=== PATIENT | female | born 2000 | race Two or more races ===

== ENCOUNTER 2020-03-29 20:43 | Outpatient (REF) | payer MEDICAID, SELFPAY | END 2020-03-29 21:03 | LOC: LBN 20:43 | PROVIDERS: Visit Provider Naturopath | DX: N76.0 Acute vaginitis (principal) | CPT/HCPCS: 87480; 87510; 87660 ==

== ENCOUNTER 2020-04-06 02:50 | Outpatient (CLI) | payer MEDICAID, SELFPAY ==
[2020-04-06 17:02] LABS: Abs Immature Grans 0.02 10^3/uL (0.0-0.06); Absolute Basophil Count 0.02 10^3/uL (0.0-0.2); Absolute Eosinophil Count 0.08 10^3/uL (0.0-0.7); Absolute Lymphocyte Count 2.14 10^3/uL (1.2-3.4); Absolute Monocyte Count 0.47 10^3/uL (0.1-0.8); Absolute Neutrophil Count 4.04 10^3/uL (1.2-6.7); Basophils % 0.3; Eosinophils % 1.2; HCT 37.5 % (36.0-46.0); HGB 12.7 g/dL (11.2-15.7); Immature Grans % 0.3; Lymphocytes % 31.6; MCH 28.7 pg (27.0-33.0); MCHC 33.9 % (32.0-36.0); MCV 84.7 fL (80-95); Monocytes % 6.9; Neutrophils % 59.7; Nucleated RBC 0 %; Platelet Count 290 10^3/uL (130-400); RBC 4.43 10^6/uL (3.93-5.22); RDW 12.8 % (11.7-14.6); RDW-SD 38.9 fL; WBC 6.77 10^3/uL (4.4-10.8)
[2020-04-06 17:46] LABS: Iron 62 ug/dL (50-170)
[2020-04-06 18:01] LABS: ALT 23 U/L (14-59); AST 17 U/L (15-37); Albumin 4.3 g/dL (3.4-5.0); Alkaline Phosphatase 60 U/L (46-116); Anion Gap 8.5 mmol/L (3-11); BUN 13 mg/dL (7-18); Bilirubin, Total 0.4 mg/dL (0.2-1.0); CO2 26.5 mmol/L (21.0-32.0); CREATININE 0.69 mg/dL (0.55-1.02); Calcium 9.1 mg/dL (8.5-10.1); Chloride 103 mmol/L (98-107); Ferritin 41 ng/mL (8-252); Glucose 83 mg/dL (74-106); Potassium 4.3 mmol/L (3.5-5.1); Sodium 138 mmol/L (136-145); TSH 1.19 uIU/mL (0.52-4.13); Total Protein 7.6 g/dL (6.4-8.2)
[2020-04-06 18:10] LABS: HCG Quant, Pregnancy < 1 mIU/mL (1-3)
[2020-04-06 18:28] LABS: FREE T4 0.94 ng/dL (0.78-1.34)
[2020-04-07 17:03] LABS: T3,Free 2.8 pg/mL (2.8-5.3)
[2020-04-08 13:52] LABS: Chlamydia Result Negative (Negative); GC Result Negative (Negative)
== END 2020-04-06 03:10 ==
PROVIDERS: PCP Naturopath; Visit Provider Naturopath
DX: R53.83 Other fatigue (principal); E07.9 Disorder of thyroid, unspecified; N94.4 Primary dysmenorrhea; K59.00 Constipation, unspecified; D50.9 Iron deficiency anemia, unspecified; R42 Dizziness and giddiness; N94.19 Other specified dyspareunia; N76.0 Acute vaginitis
CPT/HCPCS: 36415; 80053; 87491; 87591; 82728; 83540; 84439; 84443; 84481; 84702; 85025

== ENCOUNTER 2022-10-05 22:30 | Outpatient (REF) | payer MEDICAID, SELFPAY ==
--- NOTE | 2022-10-05 10:45 | PAPFT_PTH ---
PATIENT: Wing Andersen LOC: [facility] U#:[id number] AGE/SX: 21/F ROOM: RE10/05/[address]: Jonas Arevalo : 2000 BED: DIS: 10/05/2022 SPEC #: [id number] RECD: 10/08/22 12:58 STATUS: COLE RELeonard #: [id number] TOBI: 10/05/22 10:[address]: Jonas Aervalo DEPT: [facility] Cytology RECD BY: Nhung Casillas Tissues: 1 - CX/ENDOCX FOR PAP SMEARS Procedures: PAP THIN PREP/UVM Screening Comments: [id number] (CHLAMYDIA/GC)
[2022-10-09 15:07] LABS: Chlamydia Result Negative (Negative); GC Result Negative (Negative)
== END 2022-10-05 22:31 | disposition home or self-care (01) ==
LOC: LBN 22:30
PROVIDERS: PCP Naturopath; Visit Provider Naturopath
DX: N76.0 Acute vaginitis (principal); Z11.3 Encounter for screening for infections with a predominantly sexual mode of transmission; Z12.4 Encounter for screening for malignant neoplasm of cervix
CPT/HCPCS: 87491; 87591; 88142; 87480; 87510; 87660

== ENCOUNTER 2022-11-23 01:57 | Outpatient (CLI) | payer MEDICAID, SELFPAY ==
[2022-11-23 18:18] LABS: TSH (W/Ref FT4) 1.02 uIU/mL (0.36-3.74)
[2022-11-26 10:16] LABS: FSH 4.7 mIU/mL (See Note)
[2022-11-29 15:23] LABS: Testosterone, Free 0.33 ng/dL (<0.13-1.08); Testosterone, Total 23 ng/dL (8-60)
== END 2022-11-23 01:58 | disposition home or self-care (01) ==
LOC: LBO 01:57
PROVIDERS: PCP Naturopath; Visit Provider Nurse Practitioner Women's Health
DX: N92.5 Other specified irregular menstruation (principal)
CPT/HCPCS: 36415; 84402; 84403; 83001; 84443

== ENCOUNTER 2023-01-27 10:38 | Emergency (ER) | payer MEDICAID, SELFPAY ==
[2023-01-27 11:19] VITALS: BP 115/56; PULSE 98; RESP 18; TEMP 37.3; O2SAT 100
[2023-01-27 11:34] VITALS: RESP 16
--- NOTE | 2023-01-27 11:36 | ED.GENADUL_ITS ---
Discharge Plan Disposition Patient Disposition: Home Condition: Good Discharge Details Clinical Impression: Vomiting affecting , Primary Care Provider: Jonas Arevalo ED Provider: Annalisa Cruz Home Meds and New Rx's Prescriptions: New ondansetron HCl 4 mg tablet 4 mg PO Q8H PRN (Reason: nausea and vomiting) Qty: 30 0RF Continued melatonin [Kids Melatonin] 1 mg tablet,chewable 2 mg PO Unisom (doxylamine) 25 mg tablet 25 mg PO QHS PRN Classic 28 mg iron- 800 mcg tablet 1 tab PO DAILY Patient Comments: [facility] cholecalciferol (vitamin D3) 50 mcg (2,000 unit) capsule 50 mcg PO DAILY pyridoxine (vitamin B6) 100 mg tablet 100 mg PO DAILY Discharge Instructions Instructions: Nausea and Vomiting in (ED) Additional Instructions: Call your obstetric provider today to schedule an appointment to followup on your visit here. Return to the emergency department if you are unable to keep down fluids or feel like you are going to pass out. Stand Alone Forms: Work Release Referrals: Jonas Arevalo [Primary Care Provider] - Medical Decision Making 22yo F presenting 10 weeks gestation by LMP and early ultrasound with nausea, vomiting, and inability to tolerate PO. Reports confirmed IUP. Vitals signs and physical exam reassuring, no abdominal tenderness, appears well hydrated. Low suspicion for primary cardiac etiology, not concerned for ectopic or acute surgical intrabdominal process. Given 1L IVFB and IV zofran. EKG sinus rhythm, no prolonged QT, no concerning ST segment or T wave abnormalities to suggest occlusive NE. Labs ordered and reviewed, CBC & CMP reassuring with no actionable abnormalities. On reassessment she is tolerating PO fluids and crackers, no further vomiting. Ambulates steadily without lightheadedness. Discharged home with prescription for zofran and advised to followup with her OB provider; discharge instructions including return precautions were reviewed with patient who verbalized understanding. All questions were answered and they are in full agreement with the plan. Lab Data Labs: Laboratory Tests Range/Units 01/27/23 01/27/23 11:45 11:45 WBC (4.4-10.8) 10^3/uL 7.97 RBC (3.93-5.22) 10^6/uL 4.43 Hgb (11.2-15.7) g/dL 12.6 Hct (36.0-46.0) % 36.3 MCV (80-95) fL 82 MCH (27.0-33.0) pg 28.4 MCHC (32.0-36.0) % 34.7 RDW (11.7-14.6) % 12.3 Plt Count (130-400) 10^3/uL 245 MPV (8.0-11.0) fL 11.3 H Sodium (136-145) mmol/L 135 L Potassium (3.5-5.1) mmol/L 3.6 Chloride (98-107) mmol/L 102 Carbon Dioxide (21.0-32.0) mmol/L 24.2 Anion Gap (3-11) mmol/L 8.8 BUN (7-18) mg/dL 5 L Creatinine (0.55-1.02) mg/dL 0.7 Est GFR (CKD-EPI 2020) (mL/min/1.73m2) 125.33 Glucose (74-106) mg/dL 90 Calcium (8.5-10.1) mg/dL 9.0 Total Bilirubin (0.2-1.0) mg/dL 0.7 AST (15-37) U/L 13 L ALT (14-59) U/L 14 Alkaline Phosphatase (46-116) U/L 51 Total Protein (6.4-8.2) g/dL 7.7 Albumin (3.4-5.0) g/dL 3.8 HPI General Mode of arrival: ambulatory . Date/Time Provider Initiated Documentation: 01/27/23 11:36 . Limitations to Documentation: no limitations . Information obtained by: patient . HPI Narrative: 22yo F presenting 10 weeks gestation by LMP and early ultrasound with nausea, vomiting, and inability to tolerate PO. Reports confirmed IUP. No abdominal pain, dysuria, hematuria, vaginal bleeding, or vaginal discharge. Has not been able to keep anything down for the past week; has tried unisom without improvement. Over the past two days has felt very lightheaded, especially when she stands up. Otherwise in her usual state of health with no fevers, palpitations, chest pain, shortness of breath, syncope, or other concerns. Related Data Home Medications Medication Instructions Recorded Confirmed melatonin 1 mg chewable tablet 2 mg PO 12/17/22 12/31/22 (Kids Melatonin) cholecalciferol (vitamin D3) 50 50 mcg PO DAILY 12/31/22 12/31/22 mcg (2,000 unit) capsule doxylamine succinate 25 mg tablet 25 mg PO QHS PRN 12/31/22 12/31/22 (Unisom (doxylamine)) vits no.126-ferrous fum 1 tab PO DAILY 12/31/22 12/31/22 28 mg iron-folic acid 800 mcg tablet (Classic ) pyridoxine (vitamin B6) 100 mg 100 mg PO DAILY 12/31/22 12/31/22 tablet ondansetron HCl 4 mg tablet 4 mg PO Q8H PRN nausea and 01/27/23 vomiting #30 tabs Previous Rx's Medication Instructions Recorded ondansetron HCl 4 mg tablet 4 mg PO Q8H PRN nausea and 01/27/23 vomiting #30 tabs Allergies Allergy/AdvReac Type Severity Reaction Status Date / Time No Known Drug Allergies Allergy Verified 12/31/22 15:23 General Stated Complaint: Dizzy/Sync ANEL: 3 Review of Systems Narrative: see HPI PFSH All Active Problems (Updated 01/27/23 @ 13:37 by Annalisa Cruz MD) Vomiting affecting (Acute) (Acute) Medical History (Updated 01/27/23 @ 13:37 by Annalisa Cruz MD) No pertinent past medical history Surgical History (Updated 11/21/22 @ 13:26 by Nissa Villar NP) No pertinent past surgical history Social History (Updated 11/21/22 @ 13:27 by Nissa Villar NP) Smoking/Tobacco Use Status: Never Smoking risk assessment performed?: Yes Alcohol Intake: current Alcohol Intake frequency: holidays/special occasions only Drug use: Never Household members: spouse Housing: house Sexually active: Yes Do you think of yourself as: straight/heterosexual Current gender identity: female Do you feel safe at home: Yes Do you feel safe in your relationship?: Yes Female Reproductive History Menstrual control method: none History History 1 Para 0 Hx # Term Pregnancies 0 Multiple births 0 Hx # Pregnancies 0 Ectopic pregnancies 0 AB induced 0 Hx Number of Living Children 0 AB spontaneous 0 Exam Narrative Exam Narrative: General: Alert, well appearing, well nourished, in no acute distress. Head: Normocephalic, atraumatic Neck: Trachea midline, Neck supple. ENT: MMM. No oropharygeal lesions or exudate. Cardiac: RRR, no murmurs appreciated Resp: No respiratory distress. CTAB. Abd: Soft, non-distended, nontender : No suprapubic tenderness. No CVA tenderness. Extremities: No deformities. No peripheral edema. Neurologic: GCS 15. Moves all extremities freely against gravity Course Vital Signs Vital signs: Vital Signs Temperature 37.3 C 01/27/23 11:19 Pulse 98 H 01/27/23 11:19 Respiratory Rate 18 01/27/23 11:19 Blood Pressure 115/56 L 01/27/23 11:19 Pulse Oximetry 100 01/27/23 11:19 Temperature 37.3 C 01/27/23 11:19 Pulse 98 H 01/27/23 11:19 Respiratory Rate 18 01/27/23 11:19 Blood Pressure 115/56 L 01/27/23 11:19 Blood Pressure Position Standing 01/27/23 11:19 Pulse Oximetry 100 01/27/23 11:19 Oxygen Delivery Method Room Air 01/27/23 11:19 Oxygen Flow Rate 0 01/27/23 11:19 Pain Level 0 01/27/23 11:19
[2023-01-27] MEDS: Ondansetron 4 MG/2 ML VIAL IVP (11:48)
[2023-01-27 11:52] LABS: HCT 36.3 % (36.0-46.0); HGB 12.6 g/dL (11.2-15.7); MCH 28.4 pg (27.0-33.0); MCHC 34.7 % (32.0-36.0); MCV 82 fL (80-95); MPV 11.3 fL (8.0-11.0); Platelet Count 245 10^3/uL (130-400); RBC 4.43 10^6/uL (3.93-5.22); RDW 12.3 % (11.7-14.6); RDW-SD 36.8 fL; WBC 7.97 10^3/uL (4.4-10.8)
[2023-01-27 12:07] LABS: ALT 14 U/L (14-59); AST 13 U/L (15-37); Albumin 3.8 g/dL (3.4-5.0); Alkaline Phosphatase 51 U/L (46-116); Anion Gap 8.8 mmol/L (3-11); BUN 5 mg/dL (7-18); Bilirubin, Total 0.7 mg/dL (0.2-1.0); CO2 24.2 mmol/L (21.0-32.0); CREATININE 0.7 mg/dL (0.55-1.02); Chloride 102 mmol/L (98-107); Estimated GFR 125.33 (mL/min/1.73m2); Glucose 90 mg/dL (74-106); Potassium 3.6 mmol/L (3.5-5.1); Sodium 135 mmol/L (136-145); Total Protein 7.7 g/dL (6.4-8.2)
--- NOTE | 2023-01-27 12:45 | RT.EKG_ITS ---
APPROVED REPORT Exam: Resting ECG Reason for Exam: lightheaded Patient Location: E HR:65 bpm ECG Measurements Heart Rate 65 AXIS AR 179 P 65 QRSd 95 QRS 77 QT 378 T 42 QTc 393 Conclusion sinus rhythm with sinus arythmia normal axis appropriate interavls no ST segement or T wave abnormalities to suggest occlusive TX
[2023-01-27] MEDS: Normal Saline 1,000 ML 1000 ML IV (12:46)
[2023-01-27 13:44] VITALS: BP 99/52; PULSE 69; RESP 16; O2SAT 100
== END 2023-01-27 13:50 | disposition home or self-care (01) ==
PROVIDERS: Emergency Provider Student in an Organized Health Care Education/Training Program; PCP Naturopath
DX: O21.9 Vomiting of pregnancy, unspecified (principal)
CPT/HCPCS: 80053; 85027; 93005; 96361; 96374; 99284; 93010; J2405

== ENCOUNTER 2023-02-15 02:18 | Outpatient (CLI) | payer MEDICAID, SELFPAY ==
[2023-02-15 15:54] LABS: Panorama Kit Sent via Fed Ex
[2023-02-15 16:07] LABS: Abs Immature Grans 0.06 10^3/uL (0.0-0.06); Absolute Basophil Count 0.02 10^3/uL (0.0-0.2); Absolute Eosinophil Count 0.02 10^3/uL (0.0-0.7); Absolute Lymphocyte Count 1.12 10^3/uL (1.2-3.4); Absolute Monocyte Count 0.36 10^3/uL (0.1-0.8); Absolute Neutrophil Count 8.58 10^3/uL (1.2-6.7); Basophils % 0.2; Eosinophils % 0.2; HCT 34.5 % (36.0-46.0); HGB 12.2 g/dL (11.2-15.7); Immature Grans % 0.6; MCH 28.7 pg (27.0-33.0); MCHC 35.4 % (32.0-36.0); MCV 81 fL (80-95); Monocytes % 3.5; Neutrophils % 84.5; Platelet Count 276 10^3/uL (130-400); RBC 4.25 10^6/uL (3.93-5.22); RDW 12.8 % (11.7-14.6); RDW-SD 37.3 fL; WBC 10.16 10^3/uL (4.4-10.8)
[2023-02-15 16:41] LABS: TSH (W/Ref FT4) 0.56 uIU/mL (0.36-3.74)
[2023-02-18 10:04] LABS: Hepatitis C Ab w Rflx HCV PCR Negative (Negative)
[2023-02-18 12:44] LABS: Hepatitis B Surface Ag Negative (Negative)
[2023-02-18 13:13] LABS: Rubella IgG Ab (UVM) Positive (See Note); Varicella IgG Antibody Positive (See Note)
[2023-02-18 14:26] LABS: Hemoglobin S Screen Negative (Negative)
[2023-02-18 14:54] LABS: HIV-1/2 Ag & Ab Screen Negative (Negative)
[2023-02-19 16:38] LABS: Syphilis IgG w/Reflex Nonreactive (Nonreactive)
[2023-03-09 00:51] LABS: Result Summary NEGATIVE; Specimen WB Whole Blood
== END 2023-02-15 02:19 | disposition home or self-care (01) ==
LOC: LBO 02:18
PROVIDERS: PCP Naturopath; Visit Provider Advanced Practice Midwife
DX: Z34.91 Encounter for supervision of normal pregnancy, unspecified, first trimester (principal); Z3A.13 13 weeks gestation of pregnancy; Z36.89 Encounter for other specified antenatal screening
CPT/HCPCS: 36415; 81220; 81222; 86787; 86803; 86850; 86900; 86901; 87340; 87389; 84443; 85025; 85660; 86762; 86780

== ENCOUNTER 2023-02-15 15:20 | Outpatient (REF) | payer MEDICAID, SELFPAY ==
--- NOTE | 2023-02-15 15:15 | PAPFT_PTH ---
PATIENT: Wing Andersen LOC: [facility] U#:[id number] AGE/SX: 22/F ROOM: RE02/15/[address]: Jennifer Mireles CNM : 2000 BED: DIS: 02/15/2023 SPEC #: [id number] RECD: 02/18/23 12:38 STATUS: COLE REQ #: [id number] TOBI: 02/15/23 15:[address]: Jennifer Mireles DEPT: [facility] Cytology RECD BY: Nhung Casillas ENTERED: 02/18/23 12:38 SP TYPE: PAPFT OTHR DR: Jonas Arevalo Tissues: 1 - CX/ENDOCX FOR PAP SMEARS Procedures: PAP THIN PREP/UVM Screening Comments: [id number]
[2023-02-15 17:47] LABS: *AMPHETAMINES SCREEN URINE Negative (Negative); *BARBITURATES SCREEN URINE Negative (Negative); *BENZODIAZEPINES SCREEN URINE Negative (Negative); Cannabinoids THC Negative (Negative); Cocaine Screen,Urine Negative (Negative); METHADONE URINE SCREEN Negative (Negative); OPIATES URINE SCREEN Negative (Negative)
[2023-02-15 17:52] LABS: Tricyclic Antidepressants Negative (Negative)
[2023-02-17 13:51] LABS: Chlamydia Result Negative (Negative); GC Result Negative (Negative)
[2023-02-21 13:00] LABS: Buprenorphine Negative ng/mL (Cutoff: 5.0); Norbuprenorphine Negative ng/mL (Cutoff: 2.5)
== END 2023-02-15 15:21 | disposition home or self-care (01) ==
LOC: LBN 15:20
PROVIDERS: PCP Naturopath; Visit Provider Advanced Practice Midwife
DX: Z34.91 Encounter for supervision of normal pregnancy, unspecified, first trimester (principal); Z3A.13 13 weeks gestation of pregnancy; Z11.3 Encounter for screening for infections with a predominantly sexual mode of transmission; Z12.4 Encounter for screening for malignant neoplasm of cervix
CPT/HCPCS: 80307; 80348; 87491; 87591; 88142; 87086

== ENCOUNTER → 2023-04-01 02:24 | Outpatient (CLI) | payer MEDICAID, SELFPAY ==
--- NOTE | 2023-04-01 07:45 | DI.US_ITS ---
Exam(s) US OB 2-3 TRIMESTER EXAM: US OB 2-3 TRIMESTER CLINICAL HISTORY: anatomy,z34.91. TECHNIQUE: Transabdominal obstetrical ultrasound performed. COMPARISON: US POCUS EXAM from 12/31/2022 FINDINGS: Number of fetuses: One. position: Variable Placental grade: 1 Placental location: Anterior. No evidence of previa. BIOMETRIC DATA: BPD: 48mm = 20+ 3 weeks HC: 177mm = 20+ 2 weeks AC: 153mm = 20+ 3 weeks FL: 32mm = 19+ 6 weeks Cisterna Magna: 5 mm Cerebellum: 2.1 cm EFW: 339 grms 81% Composite Age: 20 +2 weeks EDC by US: 17 August 2023 Heart Rate: !ErrorBPM Amniotic fluid : Amount of fluid is within normal limits. ANATOMICAL SURVEY: Four-chambered heart: Unremarkable. LVOT: Unremarkable. RVOT: Unremarkable. Left-sided stomach: Unremarkable. urinary bladder: Unremarkable. Bilateral kidneys: Unremarkable. Three-vessel cord: Unremarkable. Cord insertion: Unremarkable. Posterior fossa:Unremarkable. ventricles: Unremarkable. nose: Unremarkable. lips: Unremarkable. palate: Unremarkable. spine: Unremarkable. Two arms and two legs: Unremarkable. IMPRESSION: 1. Single live intrauterine gestation as above with composite age 20+ 2 weeks. 2. Normal anatomic survey. DATA REPOSITORY:
== END ==
PROVIDERS: PCP Naturopath; Visit Provider Advanced Practice Midwife
DX: Z34.92 Encounter for supervision of normal pregnancy, unspecified, second trimester (principal)
CPT/HCPCS: 76805

== ENCOUNTER 2023-04-26 01:35 | Emergency (ER) | payer MEDICAID, SELFPAY ==
[2023-04-26 01:40] VITALS: BP 124/62; PULSE 78; RESP 18; TEMP 36.8; O2SAT 99
--- NOTE | 2023-04-26 02:23 | W.ED.GENAD ---
Discharge Plan Disposition Patient Disposition: Home Condition: Good Discharge Details Clinical Impression: Primary Care Provider: Jonas Arevalo ED Provider: Brittany Sanders Home Meds and New Rx's Prescriptions: Continued Classic 28 mg iron- 800 mcg tablet 1 tab PO DAILY Patient Comments: [facility] Discharge Instructions Instructions: (ED) Additional Instructions: Latonia has a normal heartbeat and is moving properly. Follow-up with your CONTAINER FINISHING INSPECTOR as scheduled and for any additional questions. Medical Decision Making Transabdominal ultrasound revealed a normal moving fetus with appropriate heart rate. The patient and her were able to watch the baby moving on ultrasound and were reassured. They will follow-up with her CONTAINER FINISHING INSPECTOR as scheduled. Medical Records Medical records reviewed: Yes I reviewed the patient's medical records. HPI General Date/Time Provider Initiated Documentation: 04/26/23 02:23. HPI Narrative: This 22-year-old 2 para 1 female patient presents with a chief complaint of not feeling the baby move today. Patient is 22 weeks gestation and states that her daughter is usually quite active. She was concerned about not feeling the baby move and called her CONTAINER FINISHING INSPECTOR. They were not concerned but the patient decided to come in for evaluation. She has had no abdominal pain or cramping. There is no vaginal bleeding or discharge. She did have a prior miscarriage. Related Data Home Medications Medication Instructions Recorded Confirmed vits no.126-ferrous fum 1 tab PO DAILY 12/31/22 04/26/23 28 mg iron-folic acid 800 mcg tablet (Classic ) Allergies Allergy/AdvReac Type Severity Reaction Status Date / Time No Known Drug Allergies Allergy Verified 04/15/23 13:15 General Stated Complaint: CONTAINER FINISHING INSPECTOR ANEL: 3 Review of Systems Gastrointestinal Gastrointestinal: Denies abdominal pain Genitourinary Genitourinary: Denies abnormal vaginal bleeding, Denies pelvic pain and Denies vaginal discharge PFSH All Active Problems (Acute) Medical History No pertinent past medical history Surgical History No pertinent past surgical history Social History Smoking/Tobacco Use Status: Never Smoking risk assessment performed?: Yes Alcohol Intake: current Alcohol Intake frequency: holidays/special occasions only Drug use: Never Household members: spouse Housing: house Sexually active: Yes Do you think of yourself as: straight/heterosexual Current gender identity: female Do you feel safe at home: Yes Do you feel safe in your relationship?: Yes Female Reproductive History Menstrual control method: none History History 1 Para 0 Hx # Term Pregnancies 0 Multiple births 0 Hx # Pregnancies 0 Ectopic pregnancies 0 AB induced 0 Hx Number of Living Children 0 AB spontaneous 0 Exam Const General: no acute distress and well developed Nutritional Appearance: well nourished Orientation: alert and awake Eyes Conjunctivae: conjunctivae normal Neck Neck: full ROM and supple Resp Effort & Inspection: normal respiratory effort and able to speak in complete sentences GI Inspection: other (gravid abdomen) Palpation: soft and nontender Skin General skin exam: no rashes or lesions noted and other (PWD) Extrem General: normal to inspection, full ROM and normal gait Course Vital Signs Vital signs: Vital Signs Temperature 36.8 C 04/26/23 01:40 Pulse 78 04/26/23 01:40 Respiratory Rate 18 04/26/23 01:40 Blood Pressure 124/62 04/26/23 01:40 Pulse Oximetry 99 04/26/23 01:40 Temperature 36.8 C 04/26/23 01:40 Temperature Source Oral 04/26/23 01:40 Pulse 78 04/26/23 01:40 Respiratory Rate 18 04/26/23 01:40 Respiratory Effort Normal, Non-Labored 04/26/23 01:46 Blood Pressure 124/62 04/26/23 01:40 Blood Pressure Position Sitting 04/26/23 01:40 Pulse Oximetry 99 04/26/23 01:40 Oxygen Delivery Method Room Air 04/26/23 01:40 Oxygen Flow Rate 0 04/26/23 01:40 Pain Level 0 04/26/23 01:46
== END 2023-04-26 02:43 | disposition home or self-care (01) ==
PROVIDERS: Emergency Provider Emergency Medicine; PCP Naturopath
DX: O36.8121 Decreased fetal movements, second trimester, fetus 1 (principal)
CPT/HCPCS: 99284; 99283

== ENCOUNTER 2023-05-13 15:05 | Outpatient (CLI) | payer MEDICAID, SELFPAY ==
[2023-05-13 15:17] VITALS: BP 104/64; PULSE 82; TEMP 36.8
[2023-05-13 15:19] VITALS: BP 104/64; PULSE 82
[2023-05-13 15:41] LABS: Bilirubin Negative (Negative); Blood Negative (Negative); Clarity Clear (Clear); Glucose Negative (Negative); Ketones Negative (Negative); Leukocyte Esterase Trace (Negative); Nitrite Negative (Negative); Specific Gravity 1.025 (1.005-1.025); Urobilinogen 0.2 mg/dL (Up to 0.2)
[2023-05-13 15:48] LABS: Bacteria Few HPF (Negative); C & S Indicated? No/Sq. Contamination; Casts Negative LPF (Negative); Crystals Negative HPF (Negative); Epithelial Cells Moderate HPF (Negative); Mucus Trace (Negative); RBC Negative HPF (0-2); WBC 0-2 HPF (0-5)
--- NOTE | 2023-05-13 15:51 | PDOC.NST_ITS ---
Date of service: 05/13/23 Time of Service: 15:51 NST Evaluation Reason for NST Reasons for Nonstress Test: OTHER, SEE COMMENT Reason for NST Other: cramping Gestational Age Gestational Age in Weeks and Days: 26 Weeks and 3Days Test and Monitor Explained Test/Monitor Explained: Test Explained, Monitor Explained and Patient Verbalized Understanding Vital Signs Blood Pressure: 104/64 Pulse: 82 Temperature: 98.2 F NST Information Time on Monitor: 15:14 NST Interventions: PO Hydration NST Evaluation Patient States Movement: Present FHR Baseline: 140 Note Ultrasound Done: N/A. NST Note Note: Wing reported menstrual-like cramping at her visit today. No evidence of uterine contractions. She reports low back pain. neg CVAT. Vaginal pathogen screen taken by vaginal swab. Wing has never had a speculum exam after her PCP had difficulty placing a speculum and she prefers to avoid speculum exam today. Urinalysis neg today. Reviewed signs of labor and instructed on how to time con tractions and Wing was encouraged to call if symptoms worsen. NST Reviewed and Verified by: Jennifer Vail
[2023-05-13 15:52] VITALS: BP 104/64; PULSE 82; TEMP 36.8
== END 2023-05-13 16:09 ==
LOC: BCD 15:07 → OBS 15:12
PROVIDERS: PCP Naturopath; Visit Provider Advanced Practice Midwife
DX: O26.893 Other specified pregnancy related conditions, third trimester (principal); R10.9 Unspecified abdominal pain; Z3A.26 26 weeks gestation of pregnancy; M54.50 Low back pain, unspecified
CPT/HCPCS: 59025; 81003; 81015; 87480; 87510; 87660

== ENCOUNTER 2023-05-31 03:06 | Outpatient (CLI) | payer MEDICAID, SELFPAY ==
[2023-05-31 08:48] LABS: HCT 32.6 % (36.0-46.0); HGB 10.9 g/dL (11.2-15.7); MCH 28.5 pg (27.0-33.0); MCHC 33.4 % (32.0-36.0); MCV 85 fL (80-95); Platelet Count 240 10^3/uL (130-400); RBC 3.82 10^6/uL (3.93-5.22); RDW 12.8 % (11.7-14.6); RDW-SD 39.8 fL; WBC 11.62 10^3/uL (4.4-10.8)
[2023-05-31 09:05] LABS: Glucose,1 Hr (Glucola) 85 mg/dL (80-140)
== END 2023-05-31 03:07 | disposition home or self-care (01) ==
LOC: LBO 03:06
PROVIDERS: PCP Naturopath; Visit Provider Advanced Practice Midwife
DX: Z34.93 Encounter for supervision of normal pregnancy, unspecified, third trimester (principal)
CPT/HCPCS: 36415; 82950; 85027; 86850; 90384

== ENCOUNTER → 2023-06-03 02:38 | Outpatient (CLI) | payer MEDICAID, SELFPAY ==
--- NOTE | 2023-06-03 06:45 | DI.US_ITS ---
Exam(s) US OB BENSON WEIGHT EXAM: US OB BENSON WEIGHT CLINICAL HISTORY: vaginal bleeding at 26 weeks gestation, o46.90. TECHNIQUE: Transabdominal obstetrical ultrasound performed. COMPARISON: US US OB 2-3 TRIMESTER from 04/01/2023 FINDINGS:: Number of fetuses: One. position: Variable Placental location: Anterior, grade 1. Appears intact. No evidence of previa. BIOMETRIC DATA: BPD: 73mm = 29+ 1 weeks HC: 273mm = 29+ 6 weeks AC: 246mm = 28+ 6 weeks FL: 54 mm = 28+ 3 weeks EFW: 1283 Gms = 45% Composite Age: 29+ 1 weeks DELORIS: 18 August 2023 Heart Rate: 143BPM Amniotic fluid index: 19 cm. Amount of fluid is visually within normal limits. IMPRESSION: size and weight are within the expected range. No placental abnormality identified. DATA REPOSITORY:
== END ==
PROVIDERS: PCP Naturopath; Visit Provider Advanced Practice Midwife
DX: O46.93 Antepartum hemorrhage, unspecified, third trimester (principal)
CPT/HCPCS: 76816

== ENCOUNTER 2023-06-28 16:11 | Outpatient (REF) | payer MEDICAID, SELFPAY | END 2023-06-28 16:12 | disposition home or self-care (01) | LOC: LBN 16:11 | PROVIDERS: PCP Naturopath; Visit Provider Advanced Practice Midwife | DX: O26.893 Other specified pregnancy related conditions, third trimester (principal); N89.8 Other specified noninflammatory disorders of vagina; Z3A.32 32 weeks gestation of pregnancy | CPT/HCPCS: 87480; 87510; 87660 ==

== ENCOUNTER 2023-07-13 16:44 | Outpatient (CLI) | payer MEDICAID, SELFPAY ==
[2023-07-13 17:02] VITALS: BP 119/67; PULSE 88
[2023-07-13 17:12] VITALS: TEMP 37.1
--- NOTE | 2023-07-13 17:42 | W.OBNST ---
Date of service: 07/13/23 Time of Service: 17:20 NST Evaluation Reason for NST Reasons for Nonstress Test: OTHER, SEE COMMENT Reason for NST Other: hx n/v now with pelvic pressure Gestational Age Gestational Age in Weeks and Days: 34 Weeks and 2Days Test and Monitor Explained Test/Monitor Explained: Test Explained, Monitor Explained and Patient Verbalized Understanding Vital Signs Blood Pressure: 119/67 Temperature: 37.1 F NST Information Date on Monitor: 07/13/23 Time on Monitor: 16:55 Date off Monitor: 07/13/23 Time off Monitor: 17:25 Total Time on Monitor: 30 NST Interventions: PO Hydration Contraction Frequency: none (KS palpated at bedside) NST Evaluation Patient States Movement: Present FHR Baseline: 120 Variability: Moderate 6-25 bpm Accelerations: 15x15 Decelerations: None NST Results: Reactive Note Ultrasound Done: N/A. NST Note Note: Wing is having increased cervical discomfort. No LOF or bleeding. Had vomiting yesterday and intercourse in the early hours of today then worked today. NST is reactive and reassuring. No signs of labor. Will be seen this week in office or return PRN. SUSI NST Reviewed and Verified by: Jennifer Mireles
[2023-07-13 17:44] VITALS: BP 119/67; TEMP 2.8; TEMP 37.1
== END 2023-07-13 17:30 | disposition home or self-care (01) ==
LOC: BCD 16:51 → OBS 17:01
PROVIDERS: PCP Naturopath; Visit Provider Advanced Practice Midwife
DX: O26.893 Other specified pregnancy related conditions, third trimester (principal); R10.2 Pelvic and perineal pain; Z3A.34 34 weeks gestation of pregnancy
CPT/HCPCS: 59025

== ENCOUNTER 2023-07-29 09:38 | Outpatient (REF) | payer MEDICAID, SELFPAY ==
[2023-07-29 10:55] LABS: *AMPHETAMINES SCREEN URINE Negative (Negative); *BARBITURATES SCREEN URINE Negative (Negative); *BENZODIAZEPINES SCREEN URINE Negative (Negative); Cannabinoids THC Negative (Negative); Cocaine Screen,Urine Negative (Negative); METHADONE URINE SCREEN Negative (Negative); OPIATES URINE SCREEN Negative (Negative); Tricyclic Antidepressants Negative (Negative)
[2023-08-03 10:52] LABS: Buprenorphine Negative ng/mL (Cutoff: 5.0); Norbuprenorphine Negative ng/mL (Cutoff: 2.5)
== END 2023-07-29 09:39 | disposition home or self-care (01) ==
LOC: LBN 09:38
PROVIDERS: PCP Naturopath; Visit Provider Advanced Practice Midwife
DX: Z34.93 Encounter for supervision of normal pregnancy, unspecified, third trimester (principal)
CPT/HCPCS: 80307; 80348; 87081

== ENCOUNTER 2023-08-11 16:48 | Outpatient (CLI) | payer OTHER, MEDICAID, SELFPAY ==
--- NOTE | 2023-08-11 16:51 | ED.GENADUL_ITS ---
HPI General Date/Time Provider Initiated Documentation: 08/11/23 16:51 . HPI Narrative: MDM Chronic conditions affecting the care of the patient: [] History obtained from an outside historian: [] External record review: [] [Diagnostic interpretations performed by me: Per my independent interpretation chest x-ray shows: Per my independent interpretation EKG shows: ]Medications: [] Social determinants of health affecting disposition: [] Management discussed with: [] Treatment/interventions considered: [] Response to therapies provided: [] HPI [ ] Exam General: Well-appearing in no acute distress speaking in complete sentences. Head: Normocephalic, atraumatic. Eye:[Pupils equal, round reactive to light.] Extraocular eye movements intact. No conjunctival injection. No scleral icterus. Ear, nose, mouth, throat: Grossly normal inspection. Normal voice, handling secretions normally. Neck: Trachea midline. Cardiovascular: Well-perfused distal extremities. Respiratory: Nonlabored respiration. Gastrointestinal: Nondistended abdomen. Musculoskeletal: No edema. Moving all 4 extremities spontaneously. Skin: Normal for age and race, grossly normal temperature and turgor. No acute rash. Neurologic: Alert and appropriate, no apparent acute deficits. Psychiatric: Mood and manner are appropriate. Grooming and personal hygiene are appropriate. Related Data Home Medications Medication Instructions Recorded Confirmed vits no.126-ferrous fum 1 tab PO DAILY #90 tabs 05/31/23 07/29/23 28 mg iron-folic acid 800 mcg tablet (Classic ) Previous Rx's Medication Instructions Recorded vits no.126-ferrous fum 1 tab PO DAILY #90 tabs 05/31/23 28 mg iron-folic acid 800 mcg tablet (Classic ) Allergies Allergy/AdvReac Type Severity Reaction Status Date / Time No Known Drug Allergies Allergy Verified 07/29/23 08:52 General ANEL: 3 Medical Decision Making Quality:SDOH Health Related Social Needs: No Data to Display PFSH All Active Problems (Updated 07/29/23 @ 09:26 by Ernestina Recinos) Costochondritis, acute (Acute) lower right ribcage Vaginal discharge during (Acute) Vaginal bleeding during (Acute) Anemia affecting (Acute) (Acute) Medical History No pertinent past medical history Surgical History No pertinent past surgical history Social History Smoking/Tobacco Use Status: Never Smoking risk assessment performed?: Yes Alcohol Intake: current Alcohol Intake frequency: holidays/special occasions only Drug use: Never Household members: spouse Housing: house Sexually active: Yes Do you think of yourself as: straight/heterosexual Current gender identity: female Do you feel safe at home: Yes Do you feel safe in your relationship?: Yes Female Reproductive History Menstrual control method: none History History 1 Para 0 Hx # Term Pregnancies 0 Multiple births 0 Hx # Pregnancies 0 Ectopic pregnancies 0 AB induced 0 Hx Number of Living Children 0 AB spontaneous 0 Discharge Plan Discharge Details Primary Care Provider: Jonas Arevalo ED Provider: Abdiaziz Knowles Home Meds and New Rx's Prescriptions: No Action Classic 28 mg iron- 800 mcg tablet 1 tab PO DAILY Qty: 90 5RF
[2023-08-11 16:54] VITALS: BP 136/73; PULSE 93; RESP 18; TEMP 36.5; O2SAT 100
--- NOTE | 2023-08-11 17:05 | NUR.NOTE ---
Nursing Note: patient had x1 contraction while talking to this RN, supervisor wet pour took patient to center
--- NOTE | 2023-08-11 17:10 | W.EDPROG ---
Date of service: 08/11/23 Time of Service: 17:10 Medical Decision Making This patient arrived to my shift. According to chart review she is a at approximately 9 months. She was concerned about the possibility of a contraction. Before I was able to evaluate, her she was taken up by wheelchair to labor and delivery. Vital signs indicate that she was normotensive, normothermic, and not tachycardic. Quality:SDOH Health Related Social Needs: No Data to Display Discharge Plan Discharge Details Chief Complaint: ELECTRICAL SUBCONTRACTOR Primary Care Provider: Jonas Arevalo ED Provider: Provider,Temporary Home Meds and New Rx's Prescriptions: No Action Classic 28 mg iron- 800 mcg tablet 1 tab PO DAILY Qty: 90 5RF
[2023-08-11 17:21] VITALS: BP 113/79; PULSE 83; TEMP 36.5
[2023-08-11 17:30] VITALS: BP 113/79; PULSE 83
--- NOTE | 2023-08-11 19:11 | W.OBNST ---
Date of service: 08/11/23 Time of Service: 19:11 NST Evaluation Reason for NST Reasons for Nonstress Test: FALSE LABOR Gestational Age Gestational Age in Weeks and Days: 38 Weeks and 3Days Test and Monitor Explained Test/Monitor Explained: Test Explained, Monitor Explained and Patient Verbalized Understanding Vital Signs Blood Pressure: 113/79 Pulse: 83 Temperature: 97.7 F Urine Results Urine Protein: Negative Urine Ketones: Positive Urine Glucose: Negative Urine Blood: Negative NST Information Date on Monitor: 08/11/23 Time on Monitor: 17:16 Date off Monitor: 08/11/23 Time off Monitor: 17:36 Total Time on Monitor: 20 NST Interventions: PO Hydration Contraction Frequency: 2-4 NST Evaluation Patient States Movement: Present FHR Baseline: 125 Variability: Moderate 6-25 bpm Accelerations: 15x15 Decelerations: None NST Results: Reactive Note Ultrasound Done: N/A. NST Note Note: cvx: 2/60% posterior, vtx -1/-2, intact membranes Rechecked 90 minutes later and unchanged Ketonuria noted, pt drank 2 glasses of AJ and ate crackers Sx labor reviewed, pt discharged To call office in AM and schedule 39 wk appt NST Reviewed and Verified by: Ernestina Recinos
[2023-08-11 19:13] VITALS: BP 113/79; PULSE 83; TEMP 36.5
== END 2023-08-11 19:08 | disposition home or self-care (01) ==
LOC: ER 17:10 → BCD 17:12 → OBS 08-12 09:38
PROVIDERS: PCP Naturopath; Visit Provider Advanced Practice Midwife
DX: O47.1 False labor at or after 37 completed weeks of gestation (principal); Z3A.38 38 weeks gestation of pregnancy
CPT/HCPCS: 00123; 59025

== ENCOUNTER 2023-08-14 03:50 | Outpatient (CLI) | payer MEDICAID, SELFPAY ==
[2023-08-14 04:11] VITALS: BP 127/80; PULSE 84
[2023-08-14 04:45] VITALS: BP 127/80; PULSE 84; TEMP 36.4
--- NOTE | 2023-08-14 08:07 | W.OBNST ---
Date of service: 08/14/23 Time of Service: 07:30 NST Evaluation Reason for NST Reasons for Nonstress Test: FALSE LABOR Gestational Age Gestational Age in Weeks and Days: 38 Weeks and 6Days Test and Monitor Explained Test/Monitor Explained: Test Explained, Monitor Explained and Patient Verbalized Understanding Vital Signs Blood Pressure: 127/80 Pulse: 84 Temperature: 97.5 F NST Information Date on Monitor: 08/14/23 Time on Monitor: 04:08 Date off Monitor: 08/14/23 Time off Monitor: 04:38 Total Time on Monitor: 30 NST Interventions: PO Hydration NST Evaluation Patient States Movement: Present FHR Baseline: 145 Variability: Moderate 6-25 bpm Accelerations: 15x15 Decelerations: None NST Results: Reactive Note Ultrasound Done: N/A. NST Note Note: NST is reactive and contractions are noted every 2-3 minutes lasting 40-50 seconds mild to moderate on palpation. VE 2/80/-1 and no change after 2 hours here. Patient was given option of discharge to home VS expectant management by observation in hospital and she preferred to go home and will call [facility] later today with update. SUSI NST Reviewed and Verified by: Jennifer Mireles
[2023-08-14 08:09] VITALS: BP 127/80; PULSE 84; TEMP 36.4
== END 2023-08-14 08:00 | disposition home or self-care (01) ==
LOC: OBS 04:14 → BCD 04:36 → OBS 06:19
PROVIDERS: PCP Naturopath; Visit Provider Advanced Practice Midwife
DX: O47.1 False labor at or after 37 completed weeks of gestation (principal); Z3A.38 38 weeks gestation of pregnancy
CPT/HCPCS: 59025; G0378

== ENCOUNTER 2023-08-28 23:21 | Emergency (ER) | payer MEDICAID, SELFPAY ==
[2023-08-28 23:26] VITALS: BP 127/81; PULSE 87; RESP 16; TEMP 36.5; O2SAT 97
--- NOTE | 2023-08-29 00:16 | ED.GENADUL_ITS ---
HPI General Mode of arrival: ambulatory . Date/Time Provider Initiated Documentation: 08/28/23 23:23 . Limitations to Documentation: no limitations . Information obtained by: patient and family . HPI Narrative: 22yo F 1 week post presenting for hives. No prior known allergies. This evening noticed redness and pruritus diffusely across her body. No new medications, no new foods, no change in soaps or detergents recently, cannot identify any new exposures. Did take 50mg of benadyrl prior to arrival without much improvement. No shortness of breath, throat tightness, nausea, vomiting, diarrhea, abdominal pain, chest pain, or other symptoms. Otherwise in her usual state of health. Related Data Allergies Allergy/AdvReac Type Severity Reaction Status Date / Time No Known Drug Allergies Allergy Other (See Verified 08/28/23 23:25 Comment) General Stated Complaint: Allergic ANEL: 3 Review of Systems Narrative: see HPI Exam Narrative Exam Narrative: General: Alert, well appearing, well nourished, in no acute distress. Head: Normocephalic, atraumatic Neck: Trachea midline, ?Neck supple. ENT: ?MMM.? Cardiac: ?RRR, no murmurs appreciated Resp: No respiratory distress. CTAB. Abd: ?Soft, non-distended, nontender Skin: Diffuse urticaria, trunk and extremities. Extremities: ?No deformities.? No peripheral edema. Neurologic: GCS 15. ? Moves all extremities freely against gravity Course Vital Signs Vital signs: Vital Signs Temperature 36.5 C 08/28/23 23:26 Pulse 87 08/28/23 23:26 Respiratory Rate 16 08/28/23 23:26 Blood Pressure 127/81 08/28/23 23:26 Pulse Oximetry 97 08/28/23 23:26 Temperature 36.5 C 08/28/23 23:26 Temperature Source Temporal Artery Scan 08/28/23 23:26 Pulse 87 08/28/23 23:26 Respiratory Rate 16 08/28/23 23:26 Respiratory Effort Normal, Non-Labored 08/28/23 23:30 Blood Pressure 127/81 08/28/23 23:26 Blood Pressure Position Sitting 08/28/23 23:26 Pulse Oximetry 97 08/28/23 23:26 Oxygen Delivery Method Room Air 08/28/23 23:26 Oxygen Flow Rate 0 08/28/23 23:26 Pain Level 7 08/28/23 23:26 Medical Decision Making 22yo F 1 week post presenting for hives. No known allergies, no identified new exposures. Vital signs and physical exam reassuring; doers have diffuse urticaria. No respiratory or GI symptoms, not anaphylaxis. Possibly allergic reaction, less likely post- PUPPP pruitic urticarial papules of . Given PO famotidine; on reassessment reports itching has improved, requests discharge home. Discharged home to followup with PCP; discharge instructions and return precautions were reviewd with patient who verbalized understanding. All questions were answered and she is in full agreement with the plan. Quality:SDOH Health Related Social Needs: No Data to Display PFSH All Active Problems (Updated 08/29/23 @ 02:07 by Annalisa Cruz MD) Allergic reaction (Acute) Costochondritis, acute (Acute) lower right ribcage Vaginal discharge during (Acute) Vaginal bleeding during (Acute) Anemia affecting (Acute) (Acute) Medical History No pertinent past medical history Surgical History No pertinent past surgical history Social History Smoking/Tobacco Use Status: Never Smoking risk assessment performed?: Yes Alcohol Intake: current Alcohol Intake frequency: holidays/special occasions only Drug use: Never Substance use type: does not use Household members: spouse Housing: house Sexually active: Yes Do you think of yourself as: straight/heterosexual Current gender identity: female Do you feel safe at home: Yes Do you feel safe in your relationship?: Yes Female Reproductive History Menstrual control method: none History History 1 Para 0 Hx # Term Pregnancies 0 Multiple births 0 Hx # Pregnancies 0 Ectopic pregnancies 0 AB induced 0 Hx Number of Living Children 0 AB spontaneous 0 Discharge Plan Disposition Patient Disposition: Home Condition: Good Discharge Details Clinical Impression: Allergic reaction Primary Care Provider: Jonas Arevalo ED Provider: Annalisa Cruz Discharge Instructions Instructions: General Allergic Reaction (ED) Additional Instructions: Take Benadryl as needed for symptoms; follow the directions on the bottle. Call your primary care doctor today to schedule an appointment within one week to follow up on your visit today. Return to the emergency department for new or worsening symptoms including difficulty breathing, vomiting, diarrhea, or if your hives return and become intolerable. Referrals: Jonas Arevalo [Primary Care Provider] -
[2023-08-29] MEDS: Famotidine 20 MG TAB 40 MG PO (00:24)
== END 2023-08-29 02:13 | disposition home or self-care (01) ==
PROVIDERS: Emergency Provider Student in an Organized Health Care Education/Training Program; PCP Naturopath
DX: T78.40XA Allergy, unspecified, initial encounter (principal); L50.0 Allergic urticaria
CPT/HCPCS: 99282; 99283

== ENCOUNTER 2024-01-10 10:38 | Outpatient (CLI) | payer OTHER, SELFPAY ==
[2024-01-10 11:14] LABS: HCG Quant, Pregnancy < 1 mIU/mL (1-3)
== END 2024-01-10 10:39 | disposition home or self-care (01) ==
LOC: LBO 10:38
PROVIDERS: PCP Naturopath; Visit Provider Advanced Practice Midwife
DX: R11.2 Nausea with vomiting, unspecified (principal); Z39.1 Encounter for care and examination of lactating mother
CPT/HCPCS: 36415; 84702

== ENCOUNTER 2024-02-17 17:28 | Emergency (ER) | payer OTHER, SELFPAY ==
[2024-02-17 17:45] VITALS: BP 111/72; PULSE 110; RESP 18; TEMP 36.7; O2SAT 98
== END 2024-02-17 20:26 | disposition left against medical advice (07) ==
LOC: ER 18:02
PROVIDERS: PCP Naturopath
DX: Z53.21 Procedure and treatment not carried out due to patient leaving prior to being seen by health care provider (principal)

== ENCOUNTER 2025-05-29 16:17 | Emergency (ER) | payer OTHER, SELFPAY ==
[2025-05-29] VITALS (18 sets, daily range): BP systolic 115–122; BP diastolic 73–83; PULSE 71–102; RESP 13–21; TEMP 36.6; O2SAT 89–100
--- NOTE | 2025-05-29 16:27 | ED.GENADUL_ITS ---
Discharge Plan Disposition Patient Disposition: Home Condition: Good Discharge Details Clinical Impression: Allergic reaction Primary Care Provider: Jonas Arevalo ED Provider: Guadalupe Paris Home Meds and New Rx's Prescriptions: New prednisone 20 mg tablet 40 mg PO DAILY 3 Days Qty: 6 0RF Discharge Instructions Additional Instructions: I recommend a follow-up with your primary care provider to obtain a referral to the financial reporting specialist for allergy testing to try to identify where you are having a reaction to. Today received antihistamine, H2 elroy, and a one-time dose of a steroid with good improvement of symptoms. I recommend that you continue taking cetirizine 10 mg p.o. daily. Cool compresses may be also helpful for itchiness. Return to emergency care if you develop worsening rash despite treatment, swelling on your face/in your mouth, difficulty breathing, hoarse voice, wheezing, nausea/vomiting, or if you are very worried and need to be rechecked immediately. Stand Alone Forms: Portal Information Referrals: Jonas Arevalo [Primary Care Provider, Medicine] [facility] General Date/Time Provider Initiated Documentation: 05/29/25 16:20 . HPI Narrative: Wing is a 24-year-old female presents to the emergency department today for dariela luation of hives. She reports she first noticed an itchy/painful red rash on her chest yesterday, she took 10 mL of children's Benadryl (25 mg) and went to bed. Today she noticed that it spread, is now off her neck and onto her face with some itching to her eyes as well. Denies intraoral swelling, difficulty breathing, wheezing, cough, new nausea/vomiting, abdominal pain. She does have diarrhea but says this has been ongoing for the last week (attributed to GI bug) and has had no acute change. No obvious inciting factors. She has had similar symptoms in the past, treated effectively with medications in ED. Denies significant past medical history. Does admit to mild bipolar without history of deanna as, as well as depression. She is not currently breast- feeding, thinks she might be . Related Data Home Medications Medication Instructions Recorded Confirmed prednisone 20 mg tablet 40 mg (2 x 20 mg) PO DAILY 3 days 05/29/25 #6 tabs Previous Rx's Medication Instructions Recorded prednisone 20 mg tablet 40 mg (2 x 20 mg) PO DAILY 3 days 05/29/25 #6 tabs Allergies Allergy/AdvReac Type Severity Reaction Status Date / Time No Known Drug Allergies Allergy Other (See Verified 05/29/25 16:26 Comment) General Stated Complaint: Allergic ANEL: 2 Exam Const General: cooperative, healthy appearing, comfortable, no acute distress and well groomed Nutritional Appearance: average body habitus and well nourished Orientation: alert and oriented x3 HENMT Head: normal to inspection and no palpable skull fracture Ears: hearing grossly normal bilaterally and external ears normal General nose exam: external nose normal Face and sinus: normal facial exam Mouth: oral mucosae normal, lip normal, tongue normal, oropharynx normal, moist mucous membranes, no drooling, no muffled voice and no trismus Teeth and gingiva: dentition normal Resp Effort & Inspection: normal respiratory effort and able to speak in complete sentences Auscultation: clear to auscultation bilaterally Cardio Rate: regular rate Rhythm: regular rhythm GI Inspection: normal to inspection Palpation: soft and nontender Skin Rashes: rashes noted hives anterior other other (To upper chest) Course Vital Signs Vital signs: Vital Signs Temperature 36.6 C 05/29/25 16:21 Pulse 96 H 05/29/25 16:21 Respiratory Rate 18 05/29/25 16:21 Blood Pressure 122/73 05/29/25 16:21 Pulse Oximetry 99 05/29/25 16:21 Temperature 36.6 C 05/29/25 16:21 Pulse 96 H 05/29/25 16:21 Respiratory Rate 18 05/29/25 16:21 Blood Pressure 122/73 05/29/25 16:21 Pulse Oximetry 99 05/29/25 16:21 Oxygen Delivery Method Room Air 05/29/25 16:21 Oxygen Flow Rate 0 05/29/25 16:21 Medical Decision Making Wing is a 24-year-old female who presents to the emergency department today for worsening hives despite Benadryl. No known inciting factors or history of anaphylaxis in the past. Reports that there is question of whether or not she may be , says that she was told she likely 3 to 4 weeks . Physical exam remarkable for hives to anterior chest, neck, and a few spots on cheeks. No intraoral swelling, wheezing, or abdominal discomfort. History of presentation consistent with allergic reaction, no concern for anaphylaxis at this time as patient does not have new GI symptoms or respiratory symptoms. No angioedema or concern for airway compromise. I independently interpreted the following tests: Serum hCG quant <3; unlikely as patient reports she is most likely 3-4 weeks . While in the emergency dept patient received cetirizine 10 mg, famotidine 40 mg. She did report that symptoms seem to be getting worse after medications, feeling more reddened and itchy/burning. I discussed extensively the risks versus benefits of steroid such as prednisone, especially in early . She says that she has had conflicting test results on whether or not she is , estimated 3 to 40 weeks gestation. She is agreeable with plan to do a one-time dose of prednisone to help with symptoms, recognizing the risks to fetus involved. History and presentation most consistent with allergic reaction. She did have good symptomatic improvement after receiving antihistamine, H2 elroy, and prednisone. Plan to home with limited course of prednisone as test is negative. Reviewed discharge instructions with patient, including symptomatic management, importance of follow up with PCP, and red flags indicating need for return to emergency care. Pt voices agreement with plan of care [facility] All Active Problems (Updated 05/29/25 @ 18:37 by Guadalupe Peña) Allergic reaction (Acute) General counselling and advice on contraception (Acute) Encounter for care of lactating mother (Acute) Nausea & vomiting (Acute) Costochondritis, acute (Acute) lower right ribcage Medical History (Updated 05/29/25 @ 18:37 by Guadalupe Peña) Anemia affecting Vaginal bleeding during Vaginal discharge during No pertinent past medical history Surgical History No pertinent past surgical history Social History Smoking/Tobacco Use Status: Never Smoking risk assessment performed?: Yes Alcohol Intake: current Alcohol Intake frequency: holidays/special occasions only Drug use: Never Substance use type: does not use Household members: spouse Housing: house Sexually active: Yes Do you think of yourself as: straight/heterosexual Current gender identity: female Do you feel safe at home: Yes Do you feel safe in your relationship?: Yes Female Reproductive History Menstrual control method: none History History 1 Para 0 Hx # Term Pregnancies 0 Multiple births 0 Hx # Pregnancies 0 Ectopic pregnancies 0 AB induced 0 Hx Number of Living Children 0 AB spontaneous 0
[2025-05-29] MEDS: Famotidine 20 MG/2 ML VIAL 40 MG IVP (16:34)
[2025-05-29] MEDS: Cetirizine 10 MG TAB PO (16:34)
[2025-05-29] MEDS: Normal Saline 1,000 ML 1000 ML IV (17:17)
[2025-05-29] MEDS: predniSONE 20 MG TAB 60 MG PO (17:30)
[2025-05-29 17:57] LABS: HCG Quant, Pregnancy < 3 mIU/mL (1.5-4.2)
== END 2025-05-29 18:55 | disposition home or self-care (01) ==
PROVIDERS: Emergency Provider Nurse Practitioner Family; PCP Naturopath
DX: L50.9 Urticaria, unspecified (principal); T78.40XA Allergy, unspecified, initial encounter
CPT/HCPCS: 99283; 99284; 96374; 96361; 84702; J7512

== ENCOUNTER 2025-06-10 20:56 | Emergency (ER) | payer OTHER, SELFPAY ==
--- NOTE | 2025-06-10 20:59 | ED.GENADUL_ITS ---
Discharge Plan Disposition Patient Disposition: Home Condition: Good Discharge Details Clinical Impression: Hives of unknown origin Primary Care Provider: Jonas Arevalo ED Provider: Robi Still Meds and New Rx's Prescriptions: New diphenhydramine HCl 50 mg capsule 50 mg PO Q6H PRN (Reason: hives) Qty: 60 0RF famotidine 20 mg tablet 20 mg PO Q12H PRN (Reason: hives) Qty: 30 0RF Discharge Instructions Instructions: Hives Additional Instructions: You were seen for recurrent hives that are occurring for unknown reason. Pre scriptions for diphenhydramine and famotidine have been sent to your pharmacy. You may take these on an as needed basis when the hives occur. Follow-up with primary care as scheduled. Return to the ED for any associated airway problems, GI symptoms, breathing problems. Stand Alone Forms: Portal Information HPI General Mode of arrival: ambulatory . Date/Time Provider Initiated Documentation: 06/10/25 20:57 . Limitations to Documentation: no limitations . Information obtained by: patient and RN notes reviewed . HPI Narrative: Patient presents to ED with hives and associated pruritis on her chest and neck. This started just a few hours ago. She has no other associated symptoms and denies throat tightness, trouble breathing, abdominal cramping, nausea/vomiting or diarrhea. This is the 3rd time it has happened, the last being just a couple of weeks ago. She did not take any medications at home. No new exposures and no clear trigger for these episodes. Has her first appointment with a new PCP in late June. Related Data Home Medications ?Medication ?Instructions ?Recorded ?Confirmed diphenhydramine HCl 50 mg capsule 50 mg PO Q6H PRN hiv es #60 caps 06/10/25 famotidine 20 mg tablet 20 mg PO Q12H PRN hives #30 tabs 06/10/25 Previous Rx's ?Medication ?Instructions ?Recorded diphenhydramine HCl 50 mg capsule 50 mg PO Q6H PRN hiv es #60 caps 06/10/25 famotidine 20 mg tablet 20 mg PO Q12H PRN hives #30 tabs 06/10/25 Allergies Allergy/AdvReac Type Severity Reaction Status Date / Time No Known Drug Allergies Allergy Other (See Verified 06/10/25 21:04 Comment) General ANEL: 2 Exam Narrative Exam Narrative: Const: WDWN female in NAD. VS per triage. HEENT: NC/AT. Normal facial exam. OP is normal, no edema. Neck: Supple. Trachea midline. Lungs: Normal respiratory effort. Lungs are clear. Cor: RRR without murmur. Good radial pulses. Neuro: A+O x 3. Normal speech, mentation, gait. Cranial nerves II - XII grossly intact. No gross motor or sensory deficit. Skin: Diffuse blotchy hives involving the chest and neck. Medical Decision Making Patient presenting to ED with hives. Unclear whether true allergic reaction versus histamine release due to some other trigger. She has no airway, breathing, GI symptoms. Lungs are clear. This is similar to past 2 episodes that have occurred. Will treat with as needed diphenhydramine and famotidine. Prescription for same sent to her pharmacy. She has follow-up with primary care for a first-time visit in June. Instructed that she may use the diphenhydramine or famotidine for recurrent symptoms in the future but should return to ED if she does develop a lot of airway, breathing problem, GI symptoms associated with rash/hives. PFSH All Active Problems Hives of unknown origin (Acute) General counselling and advice on contraception (Acute) Medical History No pertinent past medical history Surgical History No pertinent past surgical history Social History Smoking/Tobacco Use Status: Never Smoking risk assessment performed?: Yes Alcohol Intake: current Alcohol Intake frequency: holidays/special occasions only Drug use: Never Substance use type: does not use Household members: spouse Housing: house Sexually active: Yes Do you think of yourself as: straight/heterosexual Current gender identity: female Do you feel safe at home: Yes Do you feel safe in your relationship?: Yes Female Reproductive History Menstrual control method: none History History 1 Para 0 Hx # Term Pregnancies 0 Multiple births 0 Hx # Pregnancies 0 Ectopic pregnancies 0 AB induced 0 Hx Number of Living Children 0 AB spontaneous 0
[2025-06-10 21:00] VITALS: BP 135/77; PULSE 88; O2SAT 99
[2025-06-10] MEDS: Famotidine 20 MG TAB PO (21:19)
[2025-06-10] MEDS: diphenhydrAMINE 25 MG CAP 50 MG PO (21:19)
[2025-06-10 21:40] VITALS: PULSE 90; RESP 18; O2SAT 98
== END 2025-06-10 21:41 | disposition home or self-care (01) ==
PROVIDERS: Emergency Provider Emergency Medicine; PCP Naturopath
DX: L50.9 Urticaria, unspecified (principal)
CPT/HCPCS: 99283

== ENCOUNTER 2025-06-12 02:48 | Emergency (ER) | payer OTHER, SELFPAY ==
--- NOTE | 2025-06-12 02:50 | ED.GENADUL_ITS ---
Discharge Plan Disposition Patient Disposition: Home Condition: Good Discharge Details Clinical Impression: Hives of unknown origin Primary Care Provider: Jonas Arevalo ED Provider: Robi Still Home Meds and New Rx's Prescriptions: New prednisone 20 mg tablet 40 mg PO HS Qty: 8 0RF epinephrine [EpiPen 2-Ash] 0.3 mg/0.3 mL auto-injector 0.3 mg IM Q5-15M PRNQty: 2 0RF Rx Instructions: do not exceed 3 doses per episode Continued diphenhydramine HCl 50 mg capsule 50 mg PO Q6H PRN (Reason: hives) Qty: 60 0RF famotidine 20 mg tablet 20 mg PO Q12H PRN (Reason: hives) Qty: 30 0RF Discharge Instructions Additional Instructions: You were seen for worsening rash involving your upper chest and neck area. This still seems to be histamine related and has responded to half dose epinephrine. We have been placed on a prednisone burst which should help with resolution. Continue diphenhydramine and famotidine as before. I have prescribed epinephrine pen for you in case you develop any type of throat symptoms, difficulty breathing, GI symptoms in association with worsening. Please try to see if you can schedule your appointment with PCP earlier. Return to ED if you need to use epinephrine pen or if you feel that has been a change in the rash, develop fever, other concerns. Stand Alone Forms: Portal Information HPI General Mode of arrival: ambulatory . Date/Time Provider Initiated Documentation: 06/12/25 02:50 . Limitations to Documentation: no limitations . Information obtained by: patient and RN notes reviewed . HPI Narrative: Patient returns to the ED with worsening rash involving upper chest and anterior neck. She was seen by me yesterday for same. She has been taking diphenhydramine and famotidine as this appears to be hive-like in nature. She reports that the meds are not working and it is very pruritic and starting to spread towards shoulder and face area. Still no difficulty breathing, throat symptoms, GI symptoms. Continues to otherwise feeling well. Has no fever, URI symptoms. Related Data Home Medications ?Medication ?Instructions ?Recorded ?Confirmed diphenhydramine HCl 50 mg capsule 50 mg PO Q6H PRN hiv es #60 caps 06/10/25 famotidine 20 mg tablet 20 mg PO Q12H PRN hives #30 tabs 06/10/25 epinephrine 0.3 mg/0.3 mL 0.3 mg (0.3 mL) IM Q5-15M KS N #2 ea 06/12/25 injection, auto-injector (EpiPen 2-Ash) prednisone 20 mg tablet 40 mg (2 x 20 mg) PO HS #8 t abs 06/12/25 Previous Rx's ?Medication ?Instructions ?Recorded diphenhydramine HCl 50 mg capsule 50 mg PO Q6H PRN hiv es #60 caps 06/10/25 famotidine 20 mg tablet 20 mg PO Q12H PRN hives #30 tabs 06/10/25 epinephrine 0.3 mg/0.3 mL 0.3 mg (0.3 mL) IM Q5-15M KS N #2 ea 06/12/25 injection, auto-injector (EpiPen 2-Ash) prednisone 20 mg tablet 40 mg (2 x 20 mg) PO HS #8 t abs 06/12/25 Allergies Allergy/AdvReac Type Severity Reaction Status Date / Time No Known Drug Allergies Allergy Other (See Verified 06/10/25 21:04 Comment) General ANEL: 3 Exam Narrative Exam Narrative: Const: WDWN female in NAD. VS per triage. HEENT: NC/AT. Normal facial exam. Slight rash noted on chin, around lips. No swelling of lips. Normal OP. Neck: Supple. Trachea midline. No stridor. Lungs: Normal respiratory effort. Lungs are clear. Cor: RRR without murmur. Good radial pulses. Neuro: A+O x 3. Normal speech, mentation, gait. Cranial nerves II - XII grossly intact. No gross motor or sensory deficit. Skin: Red blotchy rash involving the upper anterior chest/neck with some spread to the anterior shoulder. Rash is blanching, not hot to touch. No rash involving the back, abdomen, extremities. Medical Decision Making Patient presenting with continued rash that has red and blotchy in nature, coalescing in some areas of the chest. It blanches easily. Still has hive like nature to it, not cellulitic looking and no fever or other symptoms to suggest infection. No identifiable trigger, not responding to histamine blockade. She is young and healthy, no medical problems. She has no other allergic symptoms and this is not anaphylaxis but if histamine mediated hive reaction should respond to epinephrine. Will give half dose amount subcue as well as dose with prednisone. Patient in agreement with plan. 03:50 - Patient does have improvement of rash which is fading and is not burning now, just pruritic nature. Still unclear what the etiology triggering this response is. However, I feel a burst of prednisone with continued diphenhydramine and famotidine is important. I will also prescribe epinephrine pen in case she does begin to develop any throat symptoms, respiratory symptoms, GI symptoms in association with worsening rash. She will try to move up her scheduled appointment with a new PCP. Return precautions provided. PFSH All Active Problems (Updated 06/12/25 @ 03:52 by Robi Still MD) Hives of unknown origin (Acute) General counselling and advice on contraception (Acute) Medical History No pertinent past medical history Surgical History No pertinent past surgical history Social History Smoking/Tobacco Use Status: Never Smoking risk assessment performed?: Yes Alcohol Intake: current Alcohol Intake frequency: holidays/special occasions only Drug use: Never Substance use type: does not use Household members: spouse Housing: house Sexually active: Yes Do you think of yourself as: straight/heterosexual Current gender identity: female Do you feel safe at home: Yes Do you feel safe in your relationship?: Yes Female Reproductive History Menstrual control method: none History History 1 Para 0 Hx # Term Pregnancies 0 Multiple births 0 Hx # Pregnancies 0 Ectopic pregnancies 0 AB induced 0 Hx Number of Living Children 0 AB spontaneous 0
[2025-06-12 02:54] VITALS: BP 127/68; PULSE 98; RESP 20; TEMP 36.6
[2025-06-12] MEDS: EPINEPHrine 1 MG/ML AMP pres-free 0.15 MG SC (03:11)
[2025-06-12] MEDS: predniSONE 20 MG TAB 60 MG PO (03:12)
[2025-06-12 03:26] VITALS: PULSE 88; RESP 18; O2SAT 97
--- NOTE | 2025-06-12 12:35 | NUR.NOTE ---
Patient called to state rash is getting worse. Advised her to come be reevaluated in the ED.
== END 2025-06-12 04:05 | disposition home or self-care (01) ==
PROVIDERS: Emergency Provider Emergency Medicine; PCP Naturopath
DX: L50.9 Urticaria, unspecified (principal)
CPT/HCPCS: 96372; 99284; 99283; J0166; J7512

== ENCOUNTER 2025-06-12 13:01 | Emergency (ER) | payer OTHER, SELFPAY ==
[2025-06-12 13:04] VITALS: BP 122/66; PULSE 98; RESP 18; TEMP 36.3; O2SAT 100
--- NOTE | 2025-06-12 13:19 | ED.GENADUL_ITS ---
Discharge Plan Disposition Patient Disposition: Home Condition: Stable Discharge Details Clinical Impression: Urticaria Primary Care Provider: Jonas Arevalo ED Provider: Tami Yu Home Meds and New Rx's Prescriptions: Continued diphenhydramine HCl 50 mg capsule 50 mg PO Q6H PRN (Reason: hives) Qty: 60 0RF famotidine 20 mg tablet 20 mg PO Q12H PRN (Reason: hives) Qty: 30 0RF prednisone 20 mg tablet 40 mg PO HS Qty: 8 0RF epinephrine [EpiPen 2-Ash] 0.3 mg/0.3 mL auto-injector 0.3 mg IM Q5-15M PRNQty: 2 0RF Rx Instructions: do not exceed 3 doses per episode Discharge Instructions Instructions: Hives, Topical corticosteroid medicines Additional Instructions: Please take the prednisone as previously prescribed in the a.m., you are given a dose of 60 mg here in the emergency department. Please apply the hydrocortisone cream up to 3 times daily as needed. You may continue taking the antihistamines as previously prescribed. Follow up with primary care provider in 2-3 days. Return to ED sooner if any worsening spreading of rash, trouble breathing, wheezing or concerns. Thank you for allowing us to care for you today. Stand Alone Forms: Portal Information Referrals: Jonas Arevalo [Primary Care Provider, Medicine] - 2 days Referral Note: ER follow-up, rash call for an appointment Clinical Impression: Urticaria Discharge Data Discharge Date/Time-TO BE ENTERED AT DEPARTURE: 06/12/25 15:06 HPI General Mode of arrival: ambulatory . Date/Time Provider Initiated Documentation: 06/12/25 13:07 . Limitations to Documentation: no limitations . Information obtained by: patient, RN notes reviewed and old records reviewed . HPI Narrative: 24-year-old female presents to the ER for the fourth time in the last couple weeks for a unresolved urticarial hive-like rash noted to her anterior chest and neck. She was seen early this morning approximately 12 hours ago and yesterday and also on the when this started. She has no known origin of the rash. She has been taking multi antihistamines with little to no relief has not taken the prednisone which was prescribed to her yet. She is also not needed to use the EpiPen. She notes that it seems to be getting more red and uncomfortable. She is speaking in full sentences no stridor or wheezes noted. She has been taking Pepcid and Benadryl and cetirizine. Related Data Home Medications ?Medication ?Instructions ?Recorded ?Confirmed diphenhydramine HCl 50 mg capsule 50 mg PO Q6H PRN hiv es #60 caps 06/10/25 06/12/25 famotidine 20 mg tablet 20 mg PO Q12H PRN hives #30 tabs 06/10/25 06/12/25 epinephrine 0.3 mg/0.3 mL 0.3 mg (0.3 mL) IM Q5-15M CA N #2 ea 06/12/25 06/12/25 injection, auto-injector (EpiPen 2-Ash) prednisone 20 mg tablet 40 mg (2 x 20 mg) PO HS #8 t abs 06/12/25 06/12/25 Previous Rx's ?Medication ?Instructions ?Recorded diphenhydramine HCl 50 mg capsule 50 mg PO Q6H PRN hiv es #60 caps 06/10/25 famotidine 20 mg tablet 20 mg PO Q12H PRN hives #30 tabs 06/10/25 epinephrine 0.3 mg/0.3 mL 0.3 mg (0.3 mL) IM Q5-15M CA N #2 ea 06/12/25 injection, auto-injector (EpiPen 2-Ash) prednisone 20 mg tablet 40 mg (2 x 20 mg) PO HS #8 t abs 06/12/25 Allergies Allergy/AdvReac Type Severity Reaction Status Date / Time No Known Drug Allergies Allergy Other (See Verified 06/12/25 13:11 Comment) General Stated Complaint: RashLesion ANEL: 3 Exam Resp Effort & Inspection: normal respiratory effort and able to speak in complete sentences Auscultation: clear to auscultation bilaterally Skin Rashes: rashes noted hives anterior chest borders irregular Full body images: 2 1. Hives noted, red raised maculopapular rash with irregular borders, confluent. Course Vital Signs Vital signs: Vital Signs Temperature 36.3 C L 06/12/25 13:04 Pulse 98 H 06/12/25 13:04 Respiratory Rate 18 06/12/25 13:04 Blood Pressure 122/66 06/12/25 13:04 Pulse Oximetry 100 06/12/25 13:04 Temperature 36.3 C L 06/12/25 13:04 Temperature Source Temporal Artery Scan 06/12/25 13:04 Pulse 98 H 06/12/25 13:04 Respiratory Rate 18 06/12/25 13:04 Blood Pressure 122/66 06/12/25 13:04 Blood Pressure Position Sitting 06/12/25 13:04 Pulse Oximetry 100 06/12/25 13:04 Oxygen Delivery Method Room Air 06/12/25 13:04 Oxygen Flow Rate 0 06/12/25 13:04 Medical Decision Making 24-year-old female presents to the ER for the fourth time in the last couple weeks for a unresolved urticarial hive-like rash noted to her anterior chest and neck. She was seen early this morning approximately 12 hours ago and yesterday and also on the when this started. She has no known origin of the rash. She has been taking multi antihistamines with little to no relief has not taken the prednisone which was prescribed to her yet. She is also not needed to use the EpiPen. She notes that it seems to be getting more red and uncomfortable. She is speaking in full sentences no stridor or wheezes noted. She has been taking Pepcid and Benadryl and cetirizine. Will give 60 mg of prednisone now and topical hydrocortisone cream. If no improvement will consider EpiPen. 1410: Patient reports feeling better after topical hydrocortisone and Prednisone, Will instruct patient to take the meds in am. Patient is requesting Epi pen injection prior to being Discharged, she states this improved her symptoms last visit. Patient was given IM epi and observed for approximately 30 minutes after the injection. She did have some tachycardia with a rate of 110, she was discharged in hemodynamically stable condition. Rash was improved. This text was generated using [employer] [place] dictation system, please disregard any oddities of phrase or misspellings. PFSH All Active Problems (Updated 06/12/25 @ 14:12 by Tami Yu NP) Urticaria (Acute) Hives of unknown origin (Acute) General counselling and advice on contraception (Acute) Medical History No pertinent past medical history Surgical History No pertinent past surgical history Social History Smoking/Tobacco Use Status: Never Smoking risk assessment performed?: Yes Alcohol Intake: current Alcohol Intake frequency: holidays/special occasions only Drug use: Never Substance use type: does not use Household members: spouse Housing: house Sexually active: Yes Do you think of yourself as: straight/heterosexual Current gender identity: female Do you feel safe at home: Yes Do you feel safe in your relationship?: Yes Female Reproductive History Menstrual control method: none History History 2 1 Para 0 Hx # Term Pregnancies 0 Multiple births 0 Hx # Pregnancies 0 Ectopic pregnancies 0 AB induced 0 Hx Number of Living Children 0 AB spontaneous 0
[2025-06-12] MEDS: predniSONE 20 MG TAB 60 MG PO (13:22)
[2025-06-12] MEDS: Hydrocortisone 1% CR 30 GM TUBE TP (13:23)
[2025-06-12] MEDS: EPINEPHrine 0.3 MG KIT IM (14:22)
[2025-06-12 14:26] VITALS: PULSE 110
[2025-06-12 14:30] VITALS: PULSE 114
[2025-06-12 14:40] VITALS: PULSE 119
[2025-06-12 14:50] VITALS: PULSE 115
[2025-06-12 15:00] VITALS: PULSE 109
--- NOTE | 2025-06-23 09:52 | NUR.NOTE ---
Addendum entered by Audra Reid 06/24/25 12:35: Access chart today to confirm who the patient's PCP is. Original Note: Accessed patients chart to see primary care provider for medication refill
== END 2025-06-12 15:06 | disposition home or self-care (01) ==
PROVIDERS: Emergency Provider Registered Nurse Emergency; PCP Naturopath
DX: L50.8 Other urticaria (principal)
CPT/HCPCS: 99283; J0165; J7512